=== PATIENT | female | born 1975 | race Caucasian/White ===

== ENCOUNTER 2017-02-14 12:34 | Emergency (ER) | payer OTHER ==
--- NOTE | 2017-02-14 12:41 | PD ---
HPI Chief Complaint: Body Fluid Exposure Time Seen by Provider: 12:36 Travel History International Travel<30 days: No Contact w/Intl Traveler<30days: No History of Present Illness HPI 41 yo F[place] [facility] [place] was exposed to a source patient's IV fluid including NAC and potentially bodily fluids. Facial and potentially eyes exposure reported. Pt was interviewing the source person who self-discontinued her IV, evidently ripping the IV out her arm causing a spray of fluids, thereby causing the exposure. Source patient's disease status unknown. Pt reports no pain. Pt reports no hx of HCV/HIV. PFSH Past Surgical History Tonsillectomy: Yes Social History Alcohol Use: No Tobacco Use: No Substance Use: No Allergies-Medications (Allergen,Severity, Reaction): Coded Allergies: No Known Allergies (Unverified , 10/10/15) Review of Systems General / Constitutional: No: Fever Physical Exam Narrative GENERAL: 41 yo F, NAD, very pleasant SKIN: Warm and dry. No visualized exposed blood. HEAD: Normocephalic. EYES: No scleral icterus. Minimal erythema L eye after irrigation. MUSCULOSKELETAL: No cyanosis, or edema. NEURO: AOx3. CNIII-XII grossly intact. Normal gait. MDM Medical Decision Making Medical Screen Exam Complete: Yes Emergency Medical Condition: Yes Medical Record Reviewed: Yes Differential Diagnosis HCV exposure, HIV exposure, exposure to blood potentially hazardous body fluids Narrative Course There is vanishing likelihood for contraction of HCV and HIV for the case at hand. We will defer PEP in this scenario. Source patient's blood has been drawn. Pt's blood has been drawn. Pt ready for discharge. Diagnosis Primary Impression: Exposure to potentially hazardous substance Additional Impression: Exposure to potentially hazardous body fluids Referrals: [facility] 1 week Additional Instructions: You have a choice when it comes to health care, and we are glad that you chose [facility]. Hopefully, we have met your expectations on today's visit. You are welcome to return to [facility] at any time, as we are committed to meeting the health care needs of our community. Med/Other Pt SpecificInfo: No Change to Meds Disposition: 01 DISCHARGE HOME Condition: Stable Carlos Menjivar MD Feb 14, 2017 12:41
== END 2017-02-14 13:37 | disposition home or self-care (01) ==
LOC: NEPE 12:34
DX: Z77.21 Contact with and (suspected) exposure to potentially hazardous body fluids (principal); Z77.29 Contact with and (suspected) exposure to other hazardous substances
CPT/HCPCS: 99281